=== PATIENT | female | born 1990 | race Two or more races ===

== ENCOUNTER 2017-12-13 16:01 | Emergency (ER) | payer OTHER ==
[~2017-12-13] VITALS: Ht 165.1 cm; Wt 68.0 kg
[~2017-12-13 16:01] MED LIST: NORG7TAB PO
[2017-12-13 16:05] VITALS: BP 142/80
== END 2017-12-13 16:19 | disposition home or self-care (01) ==
LOC: ER 16:03
DX: J02.9 Acute pharyngitis, unspecified (principal); R23.3 Spontaneous ecchymoses; F10.10 Alcohol abuse, uncomplicated; Z88.6 Allergy status to analgesic agent
CPT/HCPCS: A4606; A6253; Z7502; Z7610

== ENCOUNTER 2018-11-27 06:17 | Emergency (ER) | payer MEDICAID, OTHER ==
[~2018-11-27] VITALS: Ht 167.6 cm; Wt 68.0 kg
[2018-11-27 06:32] VITALS: BP 135/76
== END 2018-11-27 06:52 | disposition home or self-care (01) ==
LOC: ER 06:24
DX: H60.92 Unspecified otitis externa, left ear (principal); Z88.6 Allergy status to analgesic agent